=== PATIENT | female | born 1970 | race Caucasian/White ===

== ENCOUNTER → 2023-11-01 10:02 | Outpatient (REF) | payer OTHER, SELFPAY ==
[2023-11-01 11:51] LABS: % Basophils 1.2 % (0-2); % Eosinophils 2.5 % (0-6); % Immature Granulocytes 0.6 % (0-0.5); % Lymphocytes 13.8 % (20.5-51.1); % Monocytes 6.8 % (1.7-9.3); % Neutrophils 75.1 % (42.2-75.2); Absolute Basophils 0.1 10^3/uL (0-0.2); Absolute Eosinophils 0.2 10^3/uL (0-0.7); Absolute Lymphocytes 0.9 10^3/uL (1.2-3.4); Absolute Monocytes 0.4 10^3/uL (0.1-0.6); Absolute Neutrophils 4.8 10^3/uL (1.4-6.5); Hematocrit 33.5 % (37.0-47.0); Hemoglobin 11.2 g/dL (12.0-16.0); Mean Corp Hgb Conc. 33.4 g/dL (33.0-37.0); Mean Corpuscular Hgb 29.2 pg (27.0-31.0); Mean Corpuscular Volume 87.5 fL (81.0-99.0); Mean Platelet Volume 9.6 fL (7.4-10.4); Nucleated Red Blood Cells % 0 %; Platelet Count 527 10^3/uL (130-400); Red Blood Cell Count 3.83 10^6/uL (4.20-5.40); Red Cell Dist. Width 13.7 % (11.5-14.5); White Blood Cell Count 6.4 10^3/uL (4.8-10.8)
[2023-11-01 12:35] LABS: ALT (SGPT) 24 U/L (0-35); AST (SGOT) 25 U/L (14-36); Albumin 4.2 g/dl (3.5-5.0); Alkaline Phosphatase 135 U/L (38-126); Blood Urea Nitrogen 14 mg/dl (7-17); Calcium 9.7 mg/dl (8.4-10.2); Carbon Dioxide 28 mmol/L (22-30); Chloride 98 mmol/L (98-107); Glucose 96 mg/dl (70-99); HDL Cholesterol 41 mg/dl; LDL Cholesterol, Calculated 189 mg/dl; Potassium 4.9 mmol/L (3.5-5.1); Sodium 133 mmol/L (135-145); Total Bilirubin 0.6 mg/dl (0.2-1.3); Total Cholesterol 251 mg/dl (50-199); Total Protein 7.7 g/dl (6.3-8.2); Triglyceride 108 mg/dl (10-149); Very Low Density Lipoprotein 21 mg/dl (0-30); eGFR > 60.00
[2023-11-01 12:36] LABS: Free T3 2.58 pg/ml (2.77-5.27); Free T4 1.08 ng/dl (0.78-2.19); Vitamin D, 25-OH*** 20.9 ng/mL (30-80)
[2023-11-01 12:49] LABS: TSH 2.08 uIU/ml (0.47-4.68)
[2023-11-01 13:08] LABS: Vitamin B12 849 pg/ml (239-931)
== END ==
LOC: REG 10:02
PROVIDERS: ATTENDING PHYSICIAN Family Medicine
DX: Z86.39 Personal history of other endocrine, nutritional and metabolic disease (principal); F41.9 Anxiety disorder, unspecified; Z85.3 Personal history of malignant neoplasm of breast
CPT/HCPCS: 36415; 80053; 80061; 82306; 82607; 84439; 84443; 84481; 85025

== ENCOUNTER → 2023-12-31 07:29 | Outpatient (REF) | payer OTHER, SELFPAY ==
[2023-12-31 10:21] LABS: CA 125 10.3 U/mL (0-35); CEA 0.71 ng/ml
[2024-01-01 18:01] LABS: CA 27-29 21.5 U/mL (<=39.0)
[2024-01-02 01:20] LABS: CA 15-3 Breast Antigens 24 U/mL (0-31); CA 19-9 5 U/mL (<=35)
== END ==
LOC: WDC 07:29
PROVIDERS: Nurse Practitioner; ATTENDING PHYSICIAN Family Medicine; OTHER PHYSICIAN Internal Medicine Hematology & Oncology
DX: Z12.31 Encounter for screening mammogram for malignant neoplasm of breast (principal); M81.0 Age-related osteoporosis without current pathological fracture; C56.9 Malignant neoplasm of unspecified ovary; Z80.0 Family history of malignant neoplasm of digestive organs
CPT/HCPCS: 36415; 77063; 77067; 77080; 82378; 86300; 86301; 86304

== ENCOUNTER → 2024-05-12 10:30 | Outpatient (REF) | payer OTHER, SELFPAY ==
[2024-05-12 11:35] LABS: ALT (SGPT) 23 U/L (0-35); AST (SGOT) 36 U/L (14-36); Albumin 4.9 g/dl (3.5-5.0); Alkaline Phosphatase 61 U/L (38-126); Blood Urea Nitrogen 13 mg/dl (7-17); Calcium 10.2 mg/dl (8.4-10.2); Carbon Dioxide 31 mmol/L (22-30); Chloride 98 mmol/L (98-107); Glucose 98 mg/dl (70-99); Potassium 4.4 mmol/L (3.5-5.1); Sodium 142 mmol/L (135-145); Total Bilirubin 0.5 mg/dl (0.2-1.3); Total Protein 7.6 g/dl (6.3-8.2); eGFR > 60.00
[2024-05-12 12:07] LABS: TSH 7.53 uIU/ml (0.47-4.68)
[2024-05-12 12:32] LABS: Free T4 1.02 ng/dl (0.78-2.19)
== END ==
LOC: REG 10:30
PROVIDERS: ATTENDING PHYSICIAN Internal Medicine Endocrinology, Diabetes & Metabolism; FAMILY PHYSICIAN Family Medicine
DX: E05.90 Thyrotoxicosis, unspecified without thyrotoxic crisis or storm (principal)
CPT/HCPCS: 36415; 80053; 84439; 84443; 84481

== ENCOUNTER → 2024-07-23 10:35 | Outpatient (REF) | payer OTHER, SELFPAY ==
[2024-07-23 11:56] LABS: % Basophils 0.8 % (0-2); % Eosinophils 1.3 % (0-6); % Immature Granulocytes 0.4 % (0-0.5); % Lymphocytes 26.1 % (20.5-51.1); % Monocytes 5.3 % (1.7-9.3); % Neutrophils 66.1 % (42.2-75.2); Absolute Eosinophils 0.1 10^3/uL (0-0.7); Absolute Lymphocytes 1.2 10^3/uL (1.2-3.4); Absolute Monocytes 0.3 10^3/uL (0.1-0.6); Absolute Neutrophils 3.1 10^3/uL (1.4-6.5); Hematocrit 40.5 % (37.0-47.0); Hemoglobin 13.2 g/dL (12.0-16.0); Mean Corp Hgb Conc. 32.6 g/dL (33.0-37.0); Mean Corpuscular Hgb 29.2 pg (27.0-31.0); Mean Corpuscular Volume 89.6 fL (81.0-99.0); Mean Platelet Volume 9.4 fL (7.4-10.4); Nucleated Red Blood Cells % 0 %; Platelet Count 327 10^3/uL (130-400); Red Blood Cell Count 4.52 10^6/uL (4.20-5.40); Red Cell Dist. Width 13.4 % (11.5-14.5); White Blood Cell Count 4.7 10^3/uL (4.8-10.8)
[2024-07-23 12:34] LABS: Iron 106 ug/dl (37-170)
[2024-07-23 12:43] LABS: Percent Saturation 30 % (20-50); Total Iron Binding Capacity 346 ug/dl (265-497)
[2024-07-23 16:11] LABS: CEA 1.28 ng/ml
[2024-07-23 16:36] LABS: Free T4 0.86 ng/dl (0.78-2.19)
[2024-07-23 16:50] LABS: TSH 3.79 uIU/ml (0.47-4.68)
[2024-07-23 19:03] LABS: CA 125 8.9 U/mL (0-35)
[2024-07-25 14:34] LABS: CA 27-29 19.9 U/mL (<=39.0)
[2024-07-25 22:23] LABS: CA 15-3 Breast Antigens 19 U/mL (0-31); CA 19-9 8 U/mL (<=35)
== END ==
LOC: REG 10:35
PROVIDERS: ATTENDING PHYSICIAN Internal Medicine Endocrinology, Diabetes & Metabolism; FAMILY PHYSICIAN Internal Medicine Hematology & Oncology; REFERRING PHYSICIAN Nurse Practitioner
DX: E03.9 Hypothyroidism, unspecified (principal); C50.912 Malignant neoplasm of unspecified site of left female breast; Z51.89 Encounter for other specified aftercare; R19.07 Generalized intra-abdominal and pelvic swelling, mass and lump; D50.9 Iron deficiency anemia, unspecified; Z80.0 Family history of malignant neoplasm of digestive organs
CPT/HCPCS: 36415; 82378; 82728; 83540; 83550; 84439; 84443; 85025; 86300; 86301; 86304

== ENCOUNTER → 2024-09-24 11:23 | Outpatient (REF) | payer OTHER, SELFPAY ==
[2024-09-24 12:27] LABS: % Basophils 0.7 % (0-2); % Eosinophils 1.2 % (0-6); % Immature Granulocytes 0.2 % (0-0.5); % Lymphocytes 32.4 % (20.5-51.1); % Monocytes 9.9 % (1.7-9.3); % Neutrophils 55.6 % (42.2-75.2); Absolute Eosinophils 0.1 10^3/uL (0-0.7); Absolute Lymphocytes 1.4 10^3/uL (1.2-3.4); Absolute Monocytes 0.4 10^3/uL (0.1-0.6); Absolute Neutrophils 2.4 10^3/uL (1.4-6.5); Hematocrit 41.9 % (37.0-47.0); Hemoglobin 13.8 g/dL (12.0-16.0); Mean Corp Hgb Conc. 32.9 g/dL (33.0-37.0); Mean Corpuscular Hgb 29.9 pg (27.0-31.0); Mean Corpuscular Volume 90.9 fL (81.0-99.0); Mean Platelet Volume 9.7 fL (7.4-10.4); Nucleated Red Blood Cells % 0 %; Platelet Count 283 10^3/uL (130-400); Red Blood Cell Count 4.61 10^6/uL (4.20-5.40); Red Cell Dist. Width 13.4 % (11.5-14.5); White Blood Cell Count 4.3 10^3/uL (4.8-10.8)
[2024-09-24 12:47] LABS: Blood Urea Nitrogen 22 mg/dl (7-17); Calcium 10.2 mg/dl (8.4-10.2); Carbon Dioxide 32 mmol/L (22-30); Chloride 100 mmol/L (98-107); Glucose 102 mg/dl (70-99); Potassium 5.1 mmol/L (3.5-5.1); Sodium 137 mmol/L (135-145); Total Cholesterol 260 mg/dl (50-199); Triglyceride 82 mg/dl (10-149); Very Low Density Lipoprotein 16 mg/dl (0-30); eGFR > 60.00
[2024-09-24 12:58] LABS: HDL Cholesterol 131 mg/dl; LDL Cholesterol, Calculated 113 mg/dl
[2024-09-24 13:00] LABS: Free T4 0.85 ng/dl (0.78-2.19)
== END ==
LOC: REG 11:23
PROVIDERS: ATTENDING PHYSICIAN Family Medicine
DX: Z00.00 Encounter for general adult medical examination without abnormal findings (principal); E03.9 Hypothyroidism, unspecified
CPT/HCPCS: 36415; 80048; 80061; 84439; 84443; 85025

== ENCOUNTER → 2025-01-06 10:07 | Outpatient (REF) | payer OTHER, SELFPAY | LOC: WDC 10:07 | PROVIDERS: ATTENDING PHYSICIAN Family Medicine | DX: Z12.31 Encounter for screening mammogram for malignant neoplasm of breast (principal) | CPT/HCPCS: 77063; 77067 ==